=== PATIENT | male | born 1980 | race Caucasian/White ===

== ENCOUNTER 2016-10-22 14:08 | Emergency (ER) | payer BC ==
--- NOTE | 2016-10-22 15:19 | UC ---
Respiratory Complaint HPI - HPI Summary HPI Summary: harsh cough, chest hurts to cough and take a deep breath---feels like when he has has pneumonia in the past - History of Current Complaint Chief Complaint: UCRespiratory Stated Complaint: CHEST CONGESTION,COUGH Time Seen by Provider: 10/22/16 15:07 Hx Obtained From: Patient Onset/Duration: Gradual Onset, Lasting Days - 2, Still Present Timing: Constant Severity Initially: Moderate Severity Currently: Moderate Pain Intensity: 5 Pain Scale Used: 0-10 Numeric Character: Cough: Productive Aggravating Factors: Nothing Alleviating Factors: Nothing Associated Signs And Symptoms: Positive: Fever, Pleuritic Chest Pain - Allergies/Home Medications Allergies/Adverse Reactions: Allergies Allergy/AdvReac Type Severity Reaction Status Date / Time Penicillins Allergy Unknown Verified 10/22/16 15:01 Reaction Details Home Medications: Home Medications Buprenorphine/Naloxone SL TAB* [Suboxone 8-2 mg SL TAB*] 1 tab.sl SL DAILY 10/22 [History Confirmed 10/22/16] guaiFENesin ER TAB [Mucinex*] 600 mg PO BID 10/22/16 [History Confirmed 10/22/16 ] PMH/Surg Hx/FS Hx/Imm Hx Previously Healthy: No - opiate addition in remission Endocrine History Of: Reports: Thyroid Disease - partial thyroidectomy Denies: Diabetes Cardiovascular History Of: Denies: Cardiac Disorders Respiratory History Of: Denies: Asthma - Surgical History Surgical History: Yes Surgery Procedure, Year, and Place: partial thyroidectomy, tonsils. Chest tube , 08/2014 - Family History Known Family History: Positive: None Family History: no cardiovascular issues in family lineage - Social History Occupation: Employed Full-time Lives: With Family Alcohol Use: None Substance Use Type: None Smoking Status (MU): Heavy Every Day Tobacco Smoker Type: Cigarettes Amount Used/How Often: 1 pack day Have You Smoked in the Last Year: Yes Cessation Counseling: Counseled 3+Min - 10 Min Review of Systems Constitutional: Fever, Chills, Fatigue Skin: Negative Eyes: Negative ENT: Negative Respiratory: Cough Cardiovascular: Chest Pain - pleurtic Gastrointestinal: Negative Genitourinary: Negative Motor: Negative Neurovascular: Negative Musculoskeletal: Negative Neurological: Negative Psychological: Negative All Other Systems Reviewed And Are Negative: Yes Physical Exam Triage Information Reviewed: Yes Appearance: Well-Appearing, No Pain Distress, Well-Nourished Vital Signs: Initial Vital Signs Temp 100.2 F 10/22/16 14:57 Pulse 82 10/22/16 14:57 Resp 18 10/22/16 14:57 BP 112/71 10/22/16 14:57 Pulse Ox 100 10/22/16 14:57 Vital Signs Reviewed: Yes Eye Exam: Normal Eyes: Positive: Conjunctiva Clear ENT Exam: Normal ENT: Positive: Normal ENT inspection, Hearing grossly normal, Pharynx normal, TMs normal. Negative: Nasal congestion, Nasal drainage, Tonsillar swelling, Tonsillar exudate, Trismus, Muffled/hoarse voice Dental Exam: Normal Neck exam: Normal Neck: Positive: Supple, Nontender, No Lymphadenopathy Respiratory Exam: Normal Respiratory: Positive: Chest non-tender, Lungs clear, Normal breath sounds, No respiratory distress, No accessory muscle use Cardiovascular Exam: Normal Cardiovascular: Positive: RRR, No Murmur, Pulses Normal, Brisk Capillary Refill Musculoskeletal Exam: Normal Musculoskeletal: Positive: Strength Intact, ROM Intact, No Edema Neurological Exam: Normal Neurological: Positive: Alert, Muscle Tone Normal, Fatigued Psychological Exam: Normal Skin Exam: Normal UC Diagnostic Evaluation - Laboratory O2 Sat by Pulse Oximetry: 100 - Radiology Xray Interpretation: No Acute Changes Radiology Interpretation Completed By: Radiologist Respiratory Course/Dx - Course Course Of Treatment: Nicotine cesation information and encouragement, levaquin, albuterol rest increase fluids follow with Dr. Coe - Differential Dx/Diagnosis Differential Diagnosis/HQI/PQRI: Bronchitis, Influenza, Laryngitis, Lower Resp Infection Provider Diagnoses: Febrile illness, lower respiratory infection, nicotine dependant Discharge - Discharge Plan Condition: Stable Disposition: HOME Prescriptions: Albuterol HFA INHALER* [Ventolin HFA Inhaler*] 2 puff INH Q4H PRN #1 mdi PRN Reason: cough Levofloxacin TAB* [Levaquin TAB*] 500 mg PO DAILY #10 tab Spacer/Aerosol-Holding Chamber [Aerochamber Plus] 1 mis XX SEE INSTRUCTIONS #1 mis Patient Education Materials: Levofloxacin (By mouth), How to Stop Smoking (ED) , Acute Bronchitis (ED) Referrals: Fabricio Coe MD [Medical Doctor] - 4 Days
[2016-10-22] MEDS ORDERED: Acetaminophen TAB* 325 MG PO ONE (15:28)
--- NOTE | 2016-10-22 15:57 | RAD ---
INDICATION: Short of breath COMPARISON: August 06, 2013 TECHNIQUE: PA and lateral dual-energy views were obtained. FINDINGS: Bones/Soft Tissues: There are no acute bony findings. Cardiomediastinal: The cardiomediastinal silhouette is normal. Lungs: There are no definitive infiltrates. There is presumed mild left basilar scarring. There is hyperinflation with inversion right hemidiaphragm. Pleura: Presumed chronic pleural changes right lung base with inversion of the hemidiaphragm and blunting. No definite effusion. Other: None IMPRESSION: HYPERINFLATION WITH PRESUMED MILD CHRONIC PLEURAL AND PARENCHYMAL CHANGE LEFT LUNG BASE.
[2016-10-22 16:23] VITALS: BP 120/74
--- NOTE | 2016-10-23 15:48 | UC ---
Progress - Progress Note Progress Note: C/O nausea with levaquin. Zithromax sent in.
== END 2016-10-22 16:38 | disposition home or self-care (01) ==
LOC: UCCORT 14:08
DX: R50.9 Fever, unspecified (principal); J06.9 Acute upper respiratory infection, unspecified; Z88.0 Allergy status to penicillin; F17.210 Nicotine dependence, cigarettes, uncomplicated; Z71.6 Tobacco abuse counseling
CPT/HCPCS: 71020; 99212; A9270-GY; G0463

== ENCOUNTER 2020-10-16 09:17 | Inpatient (IN) ==
[2020-10-16 10:01] LABS: Urine Appearance Clear; Urine Bilirubin Negative (Negative); Urine Blood Negative (Negative); Urine Color Yellow; Urine Glucose Negative (Negative); Urine Ketones Negative (Negative); Urine Nitrite Negative (Negative); Urine Protein Negative (Negative); Urine Specific Gravity 1.016 (1.002-1.030); Urine Urobilinogen Negative (Negative)
[2020-10-16 10:28] LABS: Urine Benzodiazepine Screen Presumptive Positive (None Detect); Urine Cannabinoids Screen Presumptive Positive (None Detect); Urine Opiates Screen None Detected (None Detect)
[2020-10-16 11:17] LABS: Hematocrit 46 % (42-52); Mean Corpuscular HGB Conc 35 g/dL (31-36); Mean Corpuscular Hemoglobin 32 pg (27-31); Mean Corpuscular Volume 94 fL (80-94); Red Blood Count 4.95 10^6 /uL (4.18-5.48); Red Cell Distribution Width 14 % (10-15); White Blood Count 6.2 10^3/uL (3.5-10.8)
[2020-10-16 11:35] LABS: ALT 28 U/L (7-52); Albumin 4.6 g/dL (3.2-5.2); Albumin/Globulin Ratio 1.7 (1-3); Alkaline Phosphatase 51 U/L (34-104); Blood Urea Nitrogen 14 mg/dL (6-24); CO2 Carbon Dioxide 29 mmol/L (22-32); Calcium 9.4 mg/dL (8.6-10.3); Chloride 104 mmol/L (101-111); EGFR African American 132.7 (>60); EGFR Non-African American 109.7 (>60); Globulin 2.7 g/dL (2-4); Glucose 81 mg/dL (70-100); Sodium 137 mmol/L (135-145); Total Protein 7.3 g/dL (6.4-8.9)
[2020-10-16 11:39] LABS: ABS Eosinophils 0.1 10^3/ul (0-0.6); ABS Monocytes 0.4 10^3/ul (0-0.8); ABS Neutrophils 3.6 10^3/ul (1.5-7.7); Eosinophil % 2.4 %; Lymphocyte % 32.4 %; Nucleated Red Blood Cells % 0.1; Platelet Count 135 10^3/uL (150-450)
[2020-10-16 11:40] LABS: Anion Gap 4 mmol/L (2-11)
[2020-10-16 11:44] LABS: Acetaminophen < 15 mcg/mL; Alcohol, S < 10 mg/dL (<10); Salicylate < 2.50 mg/dL (<30)
[2020-10-16 11:51] LABS: TSH Ultra Thyroid Stim Horm 2.22 mcIU/mL (0.34-5.60)
[2020-10-16] MEDS ORDERED: Al Hydrox/Mg Hydrox/Simet LIQ 30 ML UDC PO PRN (13:12)
[2020-10-16] MEDS ORDERED: Nicotine GUM 4MG FRUIT FLAVOR PO ONE (13:53)
[2020-10-16] MEDS ORDERED: Nicotine PATCH 14 MG/24 HR PATCH TRANSDERM ONE (14:01)
[2020-10-16] MEDS: Buprenorp/Nalox 2-0.5 mg SL TB SL SCH (18:00)
[2020-10-16 18:46] LABS: Potassium Redraw 4.3 mmol/L (3.5-5.0)
[2020-10-17] MEDS: Buprenorp/Nalox 8-2 MG SL TAB SL SCH (09:06)
[2020-10-17] MEDS: Buprenorp/Nalox 2-0.5 mg SL TB SL SCH (18:14)
[2020-10-18] MEDS: Buprenorp/Nalox 8-2 MG SL TAB SL SCH (08:17)
[2020-10-18] MEDS: Buprenorp/Nalox 2-0.5 mg SL TB SL SCH (18:02)
[2020-10-19 07:36] LABS: HDL Cholesterol 51.2 mg/dL
[2020-10-19] MEDS: Buprenorp/Nalox 8-2 MG SL TAB SL SCH (08:00)
[2020-10-19] MEDS: Buprenorp/Nalox 2-0.5 mg SL TB SL SCH (18:01)
[2020-10-20] MEDS: Buprenorp/Nalox 8-2 MG SL TAB SL SCH (08:06)
[2020-10-20] MEDS: Buprenorp/Nalox 2-0.5 mg SL TB SL SCH (17:35)
[2020-10-21] MEDS: Buprenorp/Nalox 8-2 MG SL TAB SL SCH (08:09)
[2020-10-21] MEDS: Buprenorp/Nalox 2-0.5 mg SL TB SL SCH (18:06)
[2020-10-22 08:03] VITALS: BP 123/72
[2020-10-22] MEDS: Buprenorp/Nalox 8-2 MG SL TAB SL SCH (08:04)
== END 2020-10-22 11:55 | disposition home or self-care (01) | DRG 753 ==
LOC: ED 09:17 → BSU 13:12
PROVIDERS: ADMIT Psychiatry & Neurology Psychiatry; ATTEND Psychiatry & Neurology Psychiatry